=== PATIENT | female | born 1945 | race Caucasian/White ===

== ENCOUNTER → 2020-04-01 | Outpatient (CLI) | payer OTHER ==
[~2020-04-01] MED LIST: ABILIFY10 MG PO; ALBUTEROL0.63 MG/3 INH; ALPRAZOLAM 0.50.5 MG PO; ANORO ELLIPTA1 EACH INH; ASA81BEC PO; CHILDREN'S ZYRT10 M1 PO; DITROPAN XL10 M1 PO; FAMOTIDINE20 MG PO; FENOFIBRATE145 M1 PO; FERROCITE324 M1 PO; FLONASE 0.05%50 MCG NARES; IMDUR 30 MG TAB30 M1 PO; LEVO-T50 MCG PO; LEXAPRO 10 MG T10 M2 PO; LIPITOR 20 MG T20 M1 PO; LORCET 5-325 M1 EACH PO; MELATONIN10 M3 PO; NEURONTIN 300M300 M2 PO; PACERONE100 MG PO; PACERONE200 MG PO; POTASSIUM20 PO; PROAIR DIGIHAL90 MCG INH; SINGULAIR 10 MG10 MG PO; TOPROL XL25 MG PO; VANCOCIN 125 M125 M1 PO; ZYRTEC10 M4 PO
== END ==
LOC: SJCVC 13:29
PROVIDERS: ATTEND Internal Medicine Cardiovascular Disease
DX: R94.31 Abnormal electrocardiogram [ECG] [EKG] (principal); I44.0 Atrioventricular block, first degree; R00.0 Tachycardia, unspecified; I49.5 Sick sinus syndrome; I48.0 Paroxysmal atrial fibrillation; I13.0 Hypertensive heart and chronic kidney disease with heart failure and stage 1 through stage 4 chronic kidney disease, or unspecified chronic kidney disease; I50.9 Heart failure, unspecified; N18.9 Chronic kidney disease, unspecified; F17.200 Nicotine dependence, unspecified, uncomplicated; Z79.899 Other long term (current) drug therapy

== ENCOUNTER 2020-04-09 09:04 | Observation (INO) | payer OTHER ==
[~2020-04-09] VITALS: Ht 152.4 cm; Wt 68.5 kg
--- NOTE | ~2020-04-09 | P ---
[facility] [place] [address] PROCEDURE REPORT Name: PAMELA MICHAEL Room #: [facility] M..#: [id number] Admission: 04/09/20 Attend Phys: Sonido Rosas MD Discharge: Date of : 45 Report #: [id number] THIS REPORT FOR: cc: JUAN ALBERTO ROACH Physician not on staff Sonido Rosas MD ~ CC: JUAN ALBERTO Rosas Physician staff DATE OF SERVICE: 04/09/2020 PROCEDURE: Pacemaker implantation. PREOPERATIVE DIAGNOSES: 1. Sick sinus syndrome. 2. Atrial fibrillation. POSTOPERATIVE DIAGNOSES: 1. Sick sinus syndrome. 2. Atrial fibrillation. ANESTHESIA: The patient underwent MAC anesthesia with no anesthesia related complications. DESCRIPTION OF PROCEDURE: The patient underwent informed consent. We discussed the details of the procedure including the risks, which include but not limited to bleeding, infection, vascular damage, cardiac perforation, pneumothorax. She understood these risks and is willing to proceed. The patient was brought to the EP laboratory in a fasting and sedated state and prepped and draped in a sterile fashion. Prior to device implant, she was given some antihypertensive medications as her blood pressure was high. She received IV vancomycin for antibiotic prophylaxis and underwent a venogram showing patency of the left axillary vein. Next, I injected lidocaine below the level of left clavicle. Incision was made, the pocket was created over the prepectoral fascia and access was obtained twice to the axillary vein using the extrathoracic approach. Sheaths were positioned using the modified Seldinger technique. Next, under fluoroscopy, a lead was positioned in the right ventricular apex and the right atrial appendage both with adequate pacing and sensing thresholds. Leads were sutured in the prepectoral fascia. Of note, there was a lot of bleeding around the leads at the prepectoral fascia, likely due to high PA pressures. Therefore, I did perform a [id number]-[id number]-piwry suture around the leads to stop bleeding. I then connected the leads to the device. Tug tests were performed. The device was placed in the pocket. Pocket was irrigated with vancomycin and the pocket was closed in 2 layers using 2-0 for [facility] [address] [place] [address] PROCEDURE REPORT Name: PAMELA MICHAEL Room #: 211-P [facility] M.R.#: [id number] Admission: 04/09/20 Attend Phys: Sonido Rosas MD Discharge: Date of : 45 Report #: [id number] the deep layer, 3-0 for the middle layer and surgical glue was placed in the outer skin layer. The patient awoke neurologically and hemodynamically intact. No complications and no significant bleed. The implanted pacemaker was a Medtronic model Lauren, MRI compatible with a serial #[id number]. Atrial and ventricular leads were Medtronic leads. Atrial lead was a model #5076, 45 cm, serial #[id number] with a P-wave of 1.8 millivolts, pacing impedance 456 ohms and pacing threshold 0.75 volts at 1 millisecond. The RV lead was a [employer] model #5076, serial #[id number] with a R-wave of 9.8 millivolts, pacing impedance of 665 ohms and the pacing threshold 0.5 volts at 0.4 milliseconds. The device was programmed to the DDDR 60-130 mode. CONCLUSIONS: 1. Successful dual-chamber pacemaker implantation. 2. Satisfactory atrial and ventricular pacing and sensing thresholds. By: 1352 1835 Sonido Rosas MD /nt
[2020-04-09 10:11] LABS: HEMATOCRIT 32.5 % (37.0-47.0); HEMOGLOBIN 10.6 gm/dL (12.0-15.0); MCH 31.4 pg (26.0-34.0); MCHC 32.7 g/dL (28.0-37.0); PLATELET COUNT 174 thou/uL (150-400); RBC 3.39 mil/uL (4.20-5.00); RDW 19.1 % (10.5-14.5); WBC 3.7 thou/uL (4.0-11.0)
[2020-04-09 10:21] LABS: CALCIUM 9.4 mg/dL (8.5-10.1); CREATININE 1.1 mg/dL (0.6-1.0); POTASSIUM 3.8 mmol/L (3.5-5.1)
[2020-04-09 10:26] LABS: ALBUMIN 3.9 g/dL (3.4-5.0); APTT 30.9 Seconds (24.5-32.8); INR 1.2; PROTIME 12.1 Seconds (9.3-11.4); TOTAL BILIRUBIN 1.5 mg/dL (0.2-1.0); TOTAL PROTEIN 6.6 g/dL (6.4-8.2)
[2020-04-09 10:30] VITALS: BP 217/72
[2020-04-09 10:34] LABS: ABSOLUTE NEUTROPHILS 2.1 thou/uL (1.4-8.2); ANISOCYTOSIS 1+; PLATELET ESTIMATE NORMAL
[2020-04-09] MEDS ORDERED: ALBUTEROL0.63 MG/3 INH (10:56)
[2020-04-09] MEDS ORDERED: PROAIR DIGIHAL90 MCG INH (10:58)
[2020-04-09] MEDS ORDERED: ALPRAZOLAM 0.50.5 MG PO (10:59)
[2020-04-09] MEDS ORDERED: PACERONE100 MG PO (11:00)
[2020-04-09] MEDS ORDERED: PACERONE200 MG PO (11:00)
[2020-04-09] MEDS ORDERED: ABILIFY10 MG PO (11:01)
[2020-04-09] MEDS ORDERED: ANORO ELLIPTA1 EACH INH (11:01)
[2020-04-09] MEDS ORDERED: ASA81BEC PO (11:02)
[2020-04-09] MEDS ORDERED: LIPITOR 20 MG T20 M1 PO (11:02)
[2020-04-09] MEDS ORDERED: CHILDREN'S ZYRT10 M1 PO (11:03)
[2020-04-09] MEDS ORDERED: ZYRTEC10 M4 PO (11:03)
[2020-04-09] MEDS ORDERED: LEXAPRO 10 MG T10 M2 PO (11:04)
[2020-04-09] MEDS ORDERED: FAMOTIDINE20 MG PO (11:04)
[2020-04-09] MEDS ORDERED: FENOFIBRATE145 M1 PO (11:06)
[2020-04-09] MEDS ORDERED: FERROCITE324 M1 PO (11:06)
[2020-04-09] MEDS ORDERED: FLONASE 0.05%50 MCG NARES (11:07)
[2020-04-09] MEDS ORDERED: LEVO-T50 MCG PO (11:19)
[2020-04-09] MEDS ORDERED: TOPROL XL25 MG PO (11:20)
[2020-04-09] MEDS ORDERED: SINGULAIR 10 MG10 MG PO (11:20)
[2020-04-09] MEDS ORDERED: DITROPAN XL10 M1 PO (11:21)
[2020-04-09] MEDS ORDERED: POTASSIUM20 PO (11:22)
[2020-04-09] MEDS ORDERED: VANCOCIN 125 M125 M1 PO (11:23)
[2020-04-09] MEDS ORDERED: LORCET 5-325 M1 EACH PO (11:24)
[2020-04-09] MEDS ORDERED: NEURONTIN 300M300 M2 PO (11:24)
[2020-04-09] MEDS ORDERED: MELATONIN10 M3 PO (11:25)
[2020-04-09 15:00] VITALS: BP 179/75
[2020-04-09] MEDS ORDERED: IMDUR 30 MG TAB30 M1 PO (15:59)
--- NOTE | 2020-04-09 16:13 | NUR ---
PT ORIENTED TO ROOM AND UNIT, BED LOW AND LOCKED, SIDE RAISL UPX3, CALL LIGHT IN REACH, TELE APPLIED, LEFT CHEST PPM SITE CDI. WILL CONTINUE TO ASSESS.
[2020-04-09 16:26] VITALS: BP 179/75
[2020-04-09 17:00] VITALS: BP 114/52
[2020-04-09 18:00] VITALS: BP 200/89
[2020-04-09 19:30] VITALS: BP 179/68
[2020-04-10] VITALS: BP 162/60
[2020-04-10 04:00] VITALS: BP 156/59
--- NOTE | 2020-04-10 04:44 | NUR ---
ASSESSMENTS CHARTED, MEDS CHARTED GIVEN. PATIENT RESTING IN BED DURING SHIFT. RECEIVED A PACEMAKER TODAY IN LEFT UPPER CHEST WELL APPROXIMATED, GLUED SHUT. IMMOBILIZER IN PLACE DURING SHIFT. ALERT AND ORIENTED, SLEEPING MOST OF SHIFT. A-PACED ON TELEMETRY, LUNGS CLEAR ON ROOM AIR. DALE IN PLACE. PATIENTS HR ELEVATED AT START OF SHIFT. FOLLOW INSTRUCTIONS FOR ELEVATED HR. C/O PAIN. FALL PRECAUTIONS IN PLACE DURING SHIFT. PLAN IS TO HAVE CXR THIS AM, INTERREGATION OF DEVICE THEN HOME.
[2020-04-10 08:28] VITALS: BP 145/57
--- NOTE | 2020-04-10 10:11 | NUR ---
RECEIVED PT'S CARE AROUND 0740; PT. ON BED; ALERT; TAKEN TO X-RAY; BACK TO THE ROOM AROUND 0800; DURING AM ASSESSMENT AOX4; C/O PAIN OVER L. 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 UNDERSTANDING; ASSESSMENT CHARGED; FOLLOWING POC;
[2020-04-10 12:08] VITALS: BP 145/57
--- NOTE | 2020-04-10 14:02 | D ---
[facility] [place] [address] DISCHARGE SUMMARY Name: PAMELA MICHAEL Room #: 211-P [facility] M.R.#: [id number] Admission: 04/09/20 Attend Phys: Sonido Rosas MD Discharge: 04/10/20 Date of : 45 Report #: [id number] THIS REPORT FOR: cc: JUAN ALBERTO ROACH Physician not on staff Justin Solorio MD ~ THIS REPORT FOR: //name// CC: JUAN ALBERTO Rosas Physician staff DATE OF SERVICE: 04/10/2020 ADMITTING DIAGNOSES: Sick sinus syndrome with symptomatic atrial fibrillation and tachybrady syndrome. PROCEDURE PERFORMED: Dual-chamber pacemaker implantation (Medtronic). DISCHARGE MEDICATIONS: 1. Isosorbide mononitrate. 2. Albuterol MDI. 3. Alprazolam 0.5 mg at bedtime. 4. Amiodarone 200 mg daily. 5. Anoro Ellipta daily. 6. Abilify 10 mg daily. 7. ASA one daily 81 mg. 8. Atorvastatin 20 mg daily. 9. Zyrtec 10 mg daily. 10. Lexapro 10 mg daily. 11. Famotidine 20 mg b.i.d. 12. Fenofibrate 145 daily. 13. Ferrous sulfate 325 daily. 14. Flonase p.r.n. 15. Levothyroxine 0.05 daily. 16. Metoprolol succinate 25 mg daily. 17. Singulair 10 mg at bedtime. 18. Ditropan daily. 19. Potassium chloride 20 mEq daily. 20. Gabapentin 300 mg daily. 21. ____ 22. Melatonin 10 at bedtime. DISCHARGE DIET: Heart healthy salt restricted. FOLLOWUP: Dr. Rosas in 4 weeks. [facility] [address] [place] [address] DISCHARGE SUMMARY Name: PAMELA MICHAEL Room #: 211-P [facility] Annetta Phan#: [id number] Admission: 04/09/20 Attend Phys: Sonido Rosas MD Discharge: 04/10/20 Date of : 45 Report #: [id number] BRIEF CLINICAL HISTORY: See history and physical in chart. HOSPITAL COURSE: The patient was admitted to the hospital and underwent uncomplicated insertion of a dual chamber pacemaker. The patient's pressures were elevated postoperatively requiring 0.1 clonidine protocol to be pursued. Following initiation of her home medications, pressures were stabilized. She was allowed to ambulate without difficulty and is being discharged in improved and stable condition with the previously stated discharge instructions and medications. <ELECTRONICALLY SIGNED> By: Justin Solorio MD 04/10/20 1402 1206 1218 Justin Solorio MD /nt
== END 2020-04-10 12:40 | disposition home or self-care (01) ==
LOC: CATH 09:04 → LAB 10:36 → 2N 15:11 → CATH 15:59 → 2N 04-10 12:40
PROVIDERS: ADMIT Internal Medicine Cardiovascular Disease; ATTEND Internal Medicine Cardiovascular Disease
DX: I49.5 Sick sinus syndrome (principal); Z20.828 Contact with and (suspected) exposure to other viral communicable diseases; I48.0 Paroxysmal atrial fibrillation; R06.02 Shortness of breath; J44.9 Chronic obstructive pulmonary disease, unspecified; E66.9 Obesity, unspecified; F32.9 Major depressive disorder, single episode, unspecified; E03.9 Hypothyroidism, unspecified; I10 Essential (primary) hypertension; K52.9 Noninfective gastroenteritis and colitis, unspecified; R53.82 Chronic fatigue, unspecified; I12.9 Hypertensive chronic kidney disease with stage 1 through stage 4 chronic kidney disease, or unspecified chronic kidney disease; N18.9 Chronic kidney disease, unspecified; F17.200 Nicotine dependence, unspecified, uncomplicated; Z90.13 Acquired absence of bilateral breasts and nipples
CPT/HCPCS: 62110; 62900; 70005

== ENCOUNTER → 2020-04-13 | Outpatient (CLI) | payer OTHER | LOC: SJCVC 14:24 | DX: Z45.018 Encounter for adjustment and management of other part of cardiac pacemaker (principal); R00.1 Bradycardia, unspecified; I48.91 Unspecified atrial fibrillation; I13.0 Hypertensive heart and chronic kidney disease with heart failure and stage 1 through stage 4 chronic kidney disease, or unspecified chronic kidney disease; I50.9 Heart failure, unspecified; N18.9 Chronic kidney disease, unspecified; F17.200 Nicotine dependence, unspecified, uncomplicated; Z79.899 Other long term (current) drug therapy ==

== ENCOUNTER → 2020-07-14 | Outpatient (CLI) | payer OTHER | LOC: SJCVC 14:29 | PROVIDERS: ATTEND Internal Medicine Cardiovascular Disease | DX: Z45.018 Encounter for adjustment and management of other part of cardiac pacemaker (principal); R94.31 Abnormal electrocardiogram [ECG] [EKG]; I48.0 Paroxysmal atrial fibrillation; J44.9 Chronic obstructive pulmonary disease, unspecified; E03.9 Hypothyroidism, unspecified; M19.90 Unspecified osteoarthritis, unspecified site; I49.5 Sick sinus syndrome; I13.0 Hypertensive heart and chronic kidney disease with heart failure and stage 1 through stage 4 chronic kidney disease, or unspecified chronic kidney disease; N18.9 Chronic kidney disease, unspecified; I50.9 Heart failure, unspecified; K21.9 Gastro-esophageal reflux disease without esophagitis; F17.200 Nicotine dependence, unspecified, uncomplicated; Z79.82 Long term (current) use of aspirin; Z79.899 Other long term (current) drug therapy ==